=== PATIENT | male | born 1960 | race African-American/Black ===

== ENCOUNTER 2021-05-26 15:52 | Inpatient (IN) | payer MEDICAID ==
[~2021-05-26] VITALS: Ht 180.3 cm; Wt 99.3 kg
[2021-05-26] MEDS ORDERED: IPRATROPIUM BROMIDE (0.02%) 0.5MG/2.5ML NEB HHN STA (16:07)
[2021-05-26] MEDS ORDERED: METHYLPREDNISOLONE SOD SUCC 125 MG/2 ML VIAL IV STA (16:07)
[2021-05-26] MEDS ORDERED: MAGNESIUM 2 G PREMIX 50 ML IV ONE (16:15)
[2021-05-26] MEDS: ALBUTEROL (0.083%) 2.5MG/3ML NEB HHN SCH ×2 (16:30→17:00)
[2021-05-26] MEDS ORDERED: LEVOFLOXACIN 750MG PREMIX 150 ML IV ONE (16:30)
[2021-05-26 16:47] LABS: BASOPHILS % 0.1 % (0.0-2.0); HEMATOCRIT. 36.2 % (42.0-52.0); HEMOGLOBIN. 12.4 g/dL (14.0-18.0); LYMPHOCYTES % 11.9 % (20.0-50.0); MEAN CORPUSCULAR HEMOGLOBIN 28.7 pg (28.0-32.0); MEAN CORPUSCULAR VOLUME 83.4 fL (80.0-94.0); MEAN PLATELET VOLUME 8.8 fl (7.4-10.4); MONOCYTES % 7.8 % (2.0-8.0); NEUTROPHILS % 80.2 % (40.0-76.0); PLATELET 193 x1000/uL (130-400); RED BLOOD CELL COUNT 4.34 mill/uL (4.7-6.1); RED CELL DISTRIBUTION WIDTH 12.2 % (11.6-14.6)
[2021-05-26 16:53] LABS: CHLORIDE 107 mEq/L (98-107)
[2021-05-26] MEDS ORDERED: ALBUTEROL 6.7GM HFA INHALER ORI ONE (17:00)
[2021-05-26 22:00] VITALS: BP 153/97
[2021-05-27] VITALS (7 sets, daily range): BP systolic 137–173; BP diastolic 61–106
[2021-05-27] MEDS ORDERED: HYDROCODONE/ACETAMINOPHEN 5/325MG TABLET PO PRN
[2021-05-27] MEDS ORDERED: DOCUSATE SODIUM 100MG CAPSULE PO PRN
[2021-05-27] MEDS ORDERED: MAGNESIUM/ALUMINUM HYDROXIDE/SIMETHICONE 30ML UDC PO PRN
[2021-05-27] MEDS ORDERED: ONDANSETRON HCL 4MG/2ML INJ IV PRN
[2021-05-27] MEDS ORDERED: DEXTROSE 50% WATER 50ML SYRINGE IV PRN (00:45)
[2021-05-27] MEDS: CEFTRIAXONE 1,000 MG in DEXTROSE 5% WATER 50 ML IV SCH (01:12)
[2021-05-27] MEDS: BLOOD SUGAR DIAGNOSTIC STRIP TEST SCH ×5 (01:13→21:32)
[2021-05-27] MEDS: CLONIDINE 0.1MG TABLET PO PRN (01:13)
[2021-05-27] MEDS: INSULIN LISPRO 100 UNITS/ML SUBCUT SCH ×5 (01:13→21:32)
[2021-05-27] MEDS: AZITHROMYCIN 500 MG in DEXT 5% WATER 250 ML IV SCH (01:14)
[2021-05-27] MEDS ORDERED: METF-874 PO (03:23)
[2021-05-27] MEDS: AMLODIPINE 10MG TABLET PO SCH (08:56)
[2021-05-27] MEDS: DEXAMETHASONE 4MG/ML 1ML VIAL IV SCH (08:56)
[2021-05-27] MEDS: ACETAMINOPHEN 325MG TABLET PO PRN ×2 (08:57→21:34)
[2021-05-27 16:52] LABS: CHLORIDE 101 mEq/L (98-107)
[2021-05-27] MEDS ORDERED: INSULIN GLARGINE UD 100 UNITS/ML SYR SUBCUT SCH (22:00)
[2021-05-28] VITALS: BP 145/84
[2021-05-28] MEDS: ALBUTEROL 6.7GM HFA INHALER ORI SCH ×4 (01:05→17:25)
[2021-05-28] MEDS: AZITHROMYCIN 500 MG in DEXT 5% WATER 250 ML IV SCH (01:06)
[2021-05-28] MEDS: CEFTRIAXONE 1,000 MG in DEXTROSE 5% WATER 50 ML IV SCH (01:06)
[2021-05-28 04:00] VITALS: BP 126/87
[2021-05-28 07:06] LABS: CHLORIDE 102 mEq/L (98-107)
[2021-05-28 07:59] LABS: BASOPHILS % 0.3 % (0.0-2.0); HEMATOCRIT. 37.7 % (42.0-52.0); HEMOGLOBIN. 12.3 g/dL (14.0-18.0); LYMPHOCYTES % 9.8 % (20.0-50.0); MEAN CORPUSCULAR HEMOGLOBIN 27.4 pg (28.0-32.0); MEAN CORPUSCULAR VOLUME 83.9 fL (80.0-94.0); MEAN PLATELET VOLUME 8.9 fl (7.4-10.4); MONOCYTES % 11.2 % (2.0-8.0); NEUTROPHILS % 78.7 % (40.0-76.0); PLATELET 267 x1000/uL (130-400); RED BLOOD CELL COUNT 4.49 mill/uL (4.7-6.1); RED CELL DISTRIBUTION WIDTH 12.6 % (11.6-14.6)
[2021-05-28 08:00] VITALS: BP 138/85
[2021-05-28] MEDS: BLOOD SUGAR DIAGNOSTIC STRIP TEST SCH ×4 (08:02→21:26)
[2021-05-28] MEDS: INSULIN LISPRO 100 UNITS/ML SUBCUT SCH ×4 (08:03→21:26)
[2021-05-28] MEDS: AMLODIPINE 10MG TABLET PO SCH (08:39)
[2021-05-28] MEDS: DEXAMETHASONE 4MG/ML 1ML VIAL IV SCH (08:43)
[2021-05-28] MEDS: ENOXAPARIN 30MG/0.3ML SYR SUBCUT SCH ×2 (10:16→21:26)
[2021-05-28] MEDS: INSULIN GLARGINE UD 100 UNITS/ML SYR SUBCUT SCH ×2 (10:43→21:26)
[2021-05-28 11:24] LABS: CLARITY URINE CLEAR (CLEAR); COLOR URINE YELLOW (YELLOW); KETONES URINE NEGATIVE (NEGATIVE); LEUKOCYTE ESTERASE URINE NEGATIVE (NEGATIVE); NITRITE URINE NEGATIVE (NEGATIVE); OCCULT BLOOD URINE 1+ (NEGATIVE); PH URINE 5.5 (4.5-8.0); PROTEIN URINE 2+ (NEGATIVE); SPECIFIC GRAVITY URINE 1.019 (1.005-1.030)
[2021-05-28 11:46] LABS: *AMPHETAMINES SCREEN URINE NEGATIVE (NEGATIVE); *BARBITURATES SCREEN URINE NEGATIVE (NEGATIVE); *BENZODIAZEPINES SCREEN URINE NEGATIVE (NEGATIVE)
[2021-05-28 11:47] LABS: *COCAINE SCREEN URINE NEGATIVE (NEGATIVE); CANNABINOID URINE SCREEN NEGATIVE (NEGATIVE); METHADONE URINE SCREEN NEGATIVE (NEGATIVE); OPIATES URINE SCREEN NEGATIVE (NEGATIVE); PHENCYCLIDINE URINE SCREEN NEGATIVE (NEGATIVE)
[2021-05-28 12:00] VITALS: BP 152/101
[2021-05-28 16:00] VITALS: BP 134/73
[2021-05-28 20:00] VITALS: BP 126/75
[2021-05-28] MEDS ORDERED: NALOXONE HCL 0.4MG/ML VIAL IV PRN (23:00)
[2021-05-29] MEDS: CEFTRIAXONE 1,000 MG in DEXTROSE 5% WATER 50 ML IV SCH (00:32)
[2021-05-29] MEDS: ALBUTEROL 6.7GM HFA INHALER ORI SCH ×5 (00:32→17:13)
[2021-05-29 00:37] VITALS: BP 148/104
[2021-05-29] MEDS: AZITHROMYCIN 500 MG in DEXT 5% WATER 250 ML IV SCH (01:14)
[2021-05-29 04:00] VITALS: BP 163/94
[2021-05-29] MEDS: BLOOD SUGAR DIAGNOSTIC STRIP TEST SCH ×4 (07:40→21:43)
[2021-05-29 08:00] VITALS: BP 129/86
[2021-05-29] MEDS: AMLODIPINE 10MG TABLET PO SCH (08:11)
[2021-05-29] MEDS: DEXAMETHASONE 4MG/ML 1ML VIAL IV SCH (08:11)
[2021-05-29] MEDS: ENOXAPARIN 30MG/0.3ML SYR SUBCUT SCH ×2 (08:11→21:43)
[2021-05-29] MEDS: INSULIN LISPRO 100 UNITS/ML SUBCUT SCH ×4 (08:12→21:43)
[2021-05-29] MEDS: INSULIN GLARGINE UD 100 UNITS/ML SYR SUBCUT SCH ×2 (09:55→21:44)
[2021-05-29 12:00] VITALS: BP 154/102
[2021-05-29] MEDS: ERGOCALCIFEROL 50000UNITS CAPSULE PO SCH (15:37)
[2021-05-29 16:00] VITALS: BP 147/95
[2021-05-29 20:00] VITALS: BP 143/87
[2021-05-29] MEDS: ASCORBIC ACID 500 MG TABLET PO SCH (21:43)
[2021-05-30] VITALS: BP 138/89
[2021-05-30] MEDS: ALBUTEROL 6.7GM HFA INHALER ORI SCH ×3 (00:16→17:41)
[2021-05-30] MEDS: CEFTRIAXONE 1,000 MG in DEXTROSE 5% WATER 50 ML IV SCH (00:19)
[2021-05-30] MEDS: AZITHROMYCIN 500 MG in DEXT 5% WATER 250 ML IV SCH (00:55)
[2021-05-30 04:00] VITALS: BP 149/96
[2021-05-30 07:56] VITALS: BP 107/91
[2021-05-30] MEDS: BLOOD SUGAR DIAGNOSTIC STRIP TEST SCH ×4 (07:59→21:17)
[2021-05-30] MEDS: ASCORBIC ACID 500 MG TABLET PO SCH ×2 (08:16→21:17)
[2021-05-30] MEDS: ENOXAPARIN 30MG/0.3ML SYR SUBCUT SCH ×2 (08:17→21:17)
[2021-05-30] MEDS: DEXAMETHASONE 4MG/ML 1ML VIAL IV SCH (08:17)
[2021-05-30] MEDS: AMLODIPINE 10MG TABLET PO SCH (08:19)
[2021-05-30] MEDS: INSULIN LISPRO 100 UNITS/ML SUBCUT SCH ×4 (08:19→21:18)
[2021-05-30] MEDS: INSULIN GLARGINE UD 100 UNITS/ML SYR SUBCUT SCH ×2 (09:50→21:18)
[2021-05-30 12:08] VITALS: BP 147/98
[2021-05-30 16:15] VITALS: BP 155/95
[2021-05-30 20:00] VITALS: BP 149/93
[2021-05-31] VITALS: BP 133/87
[2021-05-31] MEDS: ALBUTEROL 6.7GM HFA INHALER ORI SCH ×6 (00:14→23:12)
[2021-05-31] MEDS: CEFTRIAXONE 1,000 MG in DEXTROSE 5% WATER 50 ML IV SCH (00:22)
[2021-05-31] MEDS: AZITHROMYCIN 500 MG in DEXT 5% WATER 250 ML IV SCH (01:09)
[2021-05-31] MEDS: ACETAMINOPHEN 325MG TABLET PO PRN ×3 (03:28→08:25)
[2021-05-31 04:00] VITALS: BP 124/77
[2021-05-31] MEDS: BLOOD SUGAR DIAGNOSTIC STRIP TEST SCH ×4 (06:51→21:00)
[2021-05-31 08:00] VITALS: BP 154/103
[2021-05-31] MEDS: AMLODIPINE 10MG TABLET PO SCH (08:22)
[2021-05-31] MEDS: ASCORBIC ACID 500 MG TABLET PO SCH ×2 (08:24→20:36)
[2021-05-31] MEDS: ENOXAPARIN 30MG/0.3ML SYR SUBCUT SCH ×2 (08:24→20:36)
[2021-05-31] MEDS: DEXAMETHASONE 4MG/ML 1ML VIAL IV SCH (08:24)
[2021-05-31] MEDS: CLONIDINE 0.1MG TABLET PO PRN (08:27)
[2021-05-31] MEDS: INSULIN LISPRO 100 UNITS/ML SUBCUT SCH ×4 (08:28→20:43)
[2021-05-31] MEDS: INSULIN GLARGINE UD 100 UNITS/ML SYR SUBCUT SCH ×2 (10:21→22:09)
[2021-05-31 12:00] VITALS: BP 141/75
[2021-05-31 16:00] VITALS: BP 142/95
[2021-05-31 20:00] VITALS: BP 126/68
[2021-06-01 00:05] VITALS: BP 133/71
[2021-06-01 04:00] VITALS: BP 125/66
[2021-06-01] MEDS: BLOOD SUGAR DIAGNOSTIC STRIP TEST SCH ×4 (07:40→20:59)
[2021-06-01 08:00] VITALS: BP 158/87
[2021-06-01] MEDS: INSULIN LISPRO 100 UNITS/ML SUBCUT SCH ×4 (08:10→20:57)
[2021-06-01] MEDS: DEXAMETHASONE 4MG/ML 1ML VIAL IV SCH (08:26)
[2021-06-01] MEDS: ASCORBIC ACID 500 MG TABLET PO SCH ×2 (08:27→20:57)
[2021-06-01] MEDS: ENOXAPARIN 30MG/0.3ML SYR SUBCUT SCH ×2 (08:27→20:57)
[2021-06-01] MEDS: AMLODIPINE 10MG TABLET PO SCH (08:27)
[2021-06-01] MEDS: INSULIN GLARGINE UD 100 UNITS/ML SYR SUBCUT SCH ×2 (09:42→20:59)
[2021-06-01] MEDS: ALBUTEROL 6.7GM HFA INHALER ORI SCH ×3 (10:25→16:52)
[2021-06-01 11:52] LABS: BG BASE EXCESS 1.5 mmol/L (-2.0-2.0); BG CARBOXYHEMOGLOBIN 0.6 % (0.5-1.5); BG DEOXYHEMOGLOBIN 5.1 % (0.0-5.0); BG FRACTION INSPIRED OXYGEN 100; BG HCO3 ACT 24.6 mmol/L (22.0-26.0); BG METHEMOGLOBIN 0.2 % (0.0-1.5); BG OXYGEN SATURATION 94.9 % (92.0-98.5); BG OXYHEMOGLOBIN 94.1 % (94.0-97.0); BG PCO2 34.3 mmHg (35.0-45.0); BG PH 7.474 (7.350-7.450); BG PO2 72.1 mmHg (75.0-100.0); BG SAMPLE SITE RIGHT RADIAL; BG TOTAL RESPIRATORY RATE 26 b/min; BG VENT MODE MASK - BIPAP
[2021-06-01 12:00] VITALS: BP 122/87
[2021-06-01 16:00] VITALS: BP 140/89
[2021-06-01 20:00] VITALS: BP 144/93
[2021-06-02] VITALS: BP 136/90
[2021-06-02 04:00] VITALS: BP 133/86
[2021-06-02] MEDS: ALBUTEROL 6.7GM HFA INHALER ORI SCH ×4 (06:05→23:48)
[2021-06-02] MEDS: BLOOD SUGAR DIAGNOSTIC STRIP TEST SCH ×4 (07:40→21:02)
[2021-06-02 08:00] VITALS: BP 169/96
[2021-06-02] MEDS: INSULIN LISPRO 100 UNITS/ML SUBCUT SCH ×4 (08:10→21:01)
[2021-06-02] MEDS: DEXAMETHASONE 4MG/ML 1ML VIAL IV SCH (09:31)
[2021-06-02] MEDS: AMLODIPINE 10MG TABLET PO SCH (09:31)
[2021-06-02] MEDS: ASCORBIC ACID 500 MG TABLET PO SCH ×2 (09:31→21:00)
[2021-06-02] MEDS: ENOXAPARIN 30MG/0.3ML SYR SUBCUT SCH ×2 (09:32→21:01)
[2021-06-02] MEDS: INSULIN GLARGINE UD 100 UNITS/ML SYR SUBCUT SCH ×2 (09:33→21:01)
[2021-06-02 12:00] VITALS: BP 177/99
[2021-06-02] MEDS: CLONIDINE 0.1MG TABLET PO PRN (12:47)
[2021-06-02 16:00] VITALS: BP 131/81
[2021-06-02 20:00] VITALS: BP 148/94
[2021-06-02] MEDS: GUAIFENESIN 200MG/10ML SUGAR FREE UDC PO PRN (23:55)
[2021-06-03] VITALS: BP 152/91
[2021-06-03 04:00] VITALS: BP 135/87
[2021-06-03] MEDS: GUAIFENESIN 200MG/10ML SUGAR FREE UDC PO PRN ×3 (05:03→17:15)
[2021-06-03] MEDS: ALBUTEROL 6.7GM HFA INHALER ORI SCH ×4 (05:03→23:38)
[2021-06-03] MEDS: BLOOD SUGAR DIAGNOSTIC STRIP TEST SCH ×4 (07:40→20:56)
[2021-06-03] MEDS: ENOXAPARIN 30MG/0.3ML SYR SUBCUT SCH ×2 (08:38→20:56)
[2021-06-03] MEDS: AMLODIPINE 10MG TABLET PO SCH (08:39)
[2021-06-03] MEDS: DEXAMETHASONE 4MG/ML 1ML VIAL IV SCH (08:39)
[2021-06-03] MEDS: ASCORBIC ACID 500 MG TABLET PO SCH ×2 (08:39→20:56)
[2021-06-03] MEDS: INSULIN LISPRO 100 UNITS/ML SUBCUT SCH ×4 (08:41→21:00)
[2021-06-03] MEDS: INSULIN GLARGINE UD 100 UNITS/ML SYR SUBCUT SCH ×2 (09:40→21:04)
[2021-06-03 12:00] VITALS: BP 130/85
[2021-06-03 16:00] VITALS: BP 144/95
[2021-06-03 20:00] VITALS: BP 158/89
[2021-06-04 00:01] VITALS: BP 131/83
[2021-06-04 04:00] VITALS: BP 143/87
[2021-06-04] MEDS: ALBUTEROL 6.7GM HFA INHALER ORI SCH ×4 (05:33→23:50)
[2021-06-04] MEDS: INSULIN LISPRO 100 UNITS/ML SUBCUT SCH ×4 (05:35→20:37)
[2021-06-04] MEDS: BLOOD SUGAR DIAGNOSTIC STRIP TEST SCH ×4 (05:35→20:34)
[2021-06-04] MEDS: GUAIFENESIN 200MG/10ML SUGAR FREE UDC PO PRN (07:57)
[2021-06-04 08:00] VITALS: BP 116/89
[2021-06-04] MEDS: ASCORBIC ACID 500 MG TABLET PO SCH ×2 (08:00→20:34)
[2021-06-04] MEDS: DEXAMETHASONE 4MG/ML 1ML VIAL IV SCH (08:00)
[2021-06-04] MEDS: ENOXAPARIN 30MG/0.3ML SYR SUBCUT SCH ×2 (08:00→20:34)
[2021-06-04] MEDS: AMLODIPINE 10MG TABLET PO SCH (08:00)
[2021-06-04] MEDS: INSULIN GLARGINE UD 100 UNITS/ML SYR SUBCUT SCH ×2 (09:44→20:38)
[2021-06-04 12:00] VITALS: BP 126/83
[2021-06-04 16:00] VITALS: BP 147/85
[2021-06-04 20:00] VITALS: BP 128/75
[2021-06-04] MEDS: ACETAMINOPHEN 325MG TABLET PO PRN (23:51)
[2021-06-05] VITALS: BP 146/90
[2021-06-05 04:00] VITALS: BP 122/96
[2021-06-05] MEDS: ALBUTEROL 6.7GM HFA INHALER ORI SCH ×4 (05:31→21:30)
[2021-06-05] MEDS: BLOOD SUGAR DIAGNOSTIC STRIP TEST SCH ×4 (06:37→20:55)
[2021-06-05 06:40] LABS: HEMATOCRIT. 41.3 % (42.0-52.0); MEAN CORPUSCULAR HEMOGLOBIN 27.8 pg (28.0-32.0); MEAN CORPUSCULAR VOLUME 88.1 fL (80.0-94.0); MEAN PLATELET VOLUME 9.9 fl (7.4-10.4); PLATELET 228 x1000/uL (130-400); RED BLOOD CELL COUNT 4.69 mill/uL (4.7-6.1); RED CELL DISTRIBUTION WIDTH 12.7 % (11.6-14.6)
[2021-06-05 06:41] LABS: CHLORIDE 103 mEq/L (98-107)
[2021-06-05] MEDS: INSULIN LISPRO 100 UNITS/ML SUBCUT SCH ×4 (07:18→20:56)
[2021-06-05 08:00] VITALS: BP 127/83
[2021-06-05] MEDS: AMLODIPINE 10MG TABLET PO SCH (08:49)
[2021-06-05] MEDS: DEXAMETHASONE 4MG/ML 1ML VIAL IV SCH (08:49)
[2021-06-05] MEDS: ASCORBIC ACID 500 MG TABLET PO SCH ×2 (08:49→20:55)
[2021-06-05] MEDS: ENOXAPARIN 30MG/0.3ML SYR SUBCUT SCH ×2 (08:49→20:55)
[2021-06-05] MEDS: ERGOCALCIFEROL 50000UNITS CAPSULE PO SCH (08:49)
[2021-06-05] MEDS: INSULIN GLARGINE UD 100 UNITS/ML SYR SUBCUT SCH ×2 (09:35→20:56)
[2021-06-05] MEDS: ACETAMINOPHEN 325MG TABLET PO PRN (11:17)
[2021-06-05 11:51] VITALS: BP 131/97
[2021-06-05 13:37] LABS: PLATELET ESTIMATE NORMAL
[2021-06-05 16:00] VITALS: BP 149/84
[2021-06-05 20:00] VITALS: BP 145/86
[2021-06-05 20:47] LABS: CREATINE KINASE 111 IU/L (39-308)
[2021-06-05 20:48] LABS: CREATINE KINASE MB FRACTION < 1.0 ng/mL (0.5-3.6)
[2021-06-05] MEDS: GUAIFENESIN 200MG/10ML SUGAR FREE UDC PO PRN (21:03)
[2021-06-06] VITALS (8 sets, daily range): BP systolic 114–135; BP diastolic 46–93
[2021-06-06 01:30] LABS: CREATINE KINASE 129 IU/L (39-308); CREATINE KINASE MB FRACTION < 1.0 ng/mL (0.5-3.6)
[2021-06-06] MEDS: ALBUTEROL 6.7GM HFA INHALER ORI SCH ×2 (06:03→11:19)
[2021-06-06] MEDS: BLOOD SUGAR DIAGNOSTIC STRIP TEST SCH ×4 (06:03→21:00)
[2021-06-06 07:31] LABS: CREATINE KINASE 125 IU/L (39-308)
[2021-06-06 07:32] LABS: CREATINE KINASE MB FRACTION < 1.0 ng/mL (0.5-3.6)
[2021-06-06] MEDS: INSULIN LISPRO 100 UNITS/ML SUBCUT SCH ×4 (07:53→22:24)
[2021-06-06] MEDS: AMLODIPINE 10MG TABLET PO SCH (08:03)
[2021-06-06] MEDS: ASCORBIC ACID 500 MG TABLET PO SCH ×2 (08:03→22:06)
[2021-06-06] MEDS: DEXAMETHASONE 4MG/ML 1ML VIAL IV SCH (08:03)
[2021-06-06] MEDS: ENOXAPARIN 30MG/0.3ML SYR SUBCUT SCH ×2 (08:03→22:07)
[2021-06-06] MEDS: INSULIN GLARGINE UD 100 UNITS/ML SYR SUBCUT SCH ×2 (09:53→22:22)
[2021-06-06] MEDS ORDERED: IPRATROPIUM/ALBUTEROL 0.5-3(2.5)MG/3ML NEB HHN PRN (12:45)
[2021-06-06] MEDS: METHYLPREDNISOLONE SOD SUCC 40 MG/ML VIAL IV SCH ×2 (15:03→22:06)
[2021-06-06] MEDS: IPRATROPIUM/ALBUTEROL 0.5-3(2.5)MG/3ML NEB HHN SCH (20:46)
[2021-06-07] VITALS (11 sets, daily range): BP systolic 110–153; BP diastolic 53–103
[2021-06-07] MEDS: ALBUTEROL 6.7GM HFA INHALER ORI SCH ×4 (00:31→17:42)
[2021-06-07] MEDS: METHYLPREDNISOLONE SOD SUCC 40 MG/ML VIAL IV SCH ×3 (05:45→21:13)
[2021-06-07] MEDS: BLOOD SUGAR DIAGNOSTIC STRIP TEST SCH ×4 (08:15→21:15)
[2021-06-07] MEDS: IPRATROPIUM/ALBUTEROL 0.5-3(2.5)MG/3ML NEB HHN SCH ×4 (08:38→20:42)
[2021-06-07] MEDS: INSULIN LISPRO 100 UNITS/ML SUBCUT SCH ×4 (08:48→21:14)
[2021-06-07] MEDS: ASCORBIC ACID 500 MG TABLET PO SCH ×2 (08:48→21:13)
[2021-06-07] MEDS: AMLODIPINE 10MG TABLET PO SCH (08:48)
[2021-06-07] MEDS: ENOXAPARIN 30MG/0.3ML SYR SUBCUT SCH ×2 (08:48→21:13)
[2021-06-07] MEDS: INSULIN GLARGINE UD 100 UNITS/ML SYR SUBCUT SCH ×2 (10:51→22:24)
[2021-06-07 11:00] LABS: BG BASE EXCESS -3.8 mmol/L (-2.0-2.0); BG CARBOXYHEMOGLOBIN 1.1 % (0.5-1.5); BG DEOXYHEMOGLOBIN 18.5 % (0.0-5.0); BG FRACTION INSPIRED OXYGEN 100; BG HCO3 ACT 19.1 mmol/L (22.0-26.0); BG METHEMOGLOBIN 0.2 % (0.0-1.5); BG OXYGEN SATURATION 81.3 % (92.0-98.5); BG OXYHEMOGLOBIN 80.2 % (94.0-97.0); BG PCO2 28.5 mmHg (35.0-45.0); BG PH 7.443 (7.350-7.450); BG PO2 45.2 mmHg (75.0-100.0); BG SAMPLE SITE RIGHT RADIAL; BG TOTAL HEMOGLOBIN 12.4 g/dL (12.0-18.0); BG VENT MODE HIGH FLOW
[2021-06-08] VITALS (19 sets, daily range): BP systolic 106–156; BP diastolic 55–100
[2021-06-08] MEDS: IPRATROPIUM/ALBUTEROL 0.5-3(2.5)MG/3ML NEB HHN SCH ×5 (02:16→21:04)
[2021-06-08] MEDS: METHYLPREDNISOLONE SOD SUCC 40 MG/ML VIAL IV SCH ×3 (05:13→21:37)
[2021-06-08] MEDS: BLOOD SUGAR DIAGNOSTIC STRIP TEST SCH ×4 (07:30→21:38)
[2021-06-08] MEDS: INSULIN LISPRO 100 UNITS/ML SUBCUT SCH ×4 (08:00→21:37)
[2021-06-08] MEDS: GUAIFENESIN 200MG/10ML SUGAR FREE UDC PO PRN (09:18)
[2021-06-08] MEDS: ENOXAPARIN 30MG/0.3ML SYR SUBCUT SCH ×2 (09:19→21:37)
[2021-06-08] MEDS: ACETAMINOPHEN 325MG TABLET PO PRN (09:19)
[2021-06-08] MEDS: ASCORBIC ACID 500 MG TABLET PO SCH ×2 (09:19→21:37)
[2021-06-08] MEDS: ERGOCALCIFEROL 50000UNITS CAPSULE PO SCH (09:19)
[2021-06-08] MEDS: AMLODIPINE 10MG TABLET PO SCH (09:20)
[2021-06-08] MEDS: INSULIN GLARGINE UD 100 UNITS/ML SYR SUBCUT SCH ×2 (10:00→21:38)
[2021-06-08 12:36] LABS: BG BASE EXCESS -3.1 mmol/L (-2.0-2.0); BG CARBOXYHEMOGLOBIN 0.9 % (0.5-1.5); BG DEOXYHEMOGLOBIN 7.7 % (0.0-5.0); BG FRACTION INSPIRED OXYGEN 100; BG HCO3 ACT 19.5 mmol/L (22.0-26.0); BG METHEMOGLOBIN 0.3 % (0.0-1.5); BG OXYGEN SATURATION 92.2 % (92.0-98.5); BG OXYHEMOGLOBIN 91.1 % (94.0-97.0); BG PCO2 28.3 mmHg (35.0-45.0); BG PH 7.456 (7.350-7.450); BG SAMPLE SITE RIGHT RADIAL; BG VENT MODE HIGH FLOW
[2021-06-09] MEDS: IPRATROPIUM/ALBUTEROL 0.5-3(2.5)MG/3ML NEB HHN SCH ×2 (01:02→08:02)
[2021-06-09] MEDS: METHYLPREDNISOLONE SOD SUCC 40 MG/ML VIAL IV SCH (04:09)
[2021-06-09 05:47] VITALS: BP 126/93
[2021-06-09] MEDS: BLOOD SUGAR DIAGNOSTIC STRIP TEST SCH (07:30)
[2021-06-09] MEDS: INSULIN LISPRO 100 UNITS/ML SUBCUT SCH (08:00)
[2021-06-09] MEDS ORDERED: ATROPINE SULFATE 1MG/10ML SYR ONE (08:34)
[2021-06-09] MEDS ORDERED: VECURONIUM BROMIDE 10 MG/VIAL IV ONE (08:34)
[2021-06-09] MEDS ORDERED: ETOMIDATE 2MG/ML 10ML VIAL IV ONE (08:34)
[2021-06-09] MEDS ORDERED: DEXTROSE 50% WATER 50ML SYRINGE IV ONE (09:01)
[2021-06-09] MEDS ORDERED: CALCIUM CHLORIDE 1GM/10ML SYR IV ONE (09:01)
[2021-06-09] MEDS ORDERED: EPINEPHRINE 0.1MG/ML (1:10,000) 10ML SYR ONE (09:01)
[2021-06-09] MEDS ORDERED: SODIUM BICARBONATE 8.4% 1 MEQ/ML 50ML SYR IV ONE (09:01)
[2021-06-09] MEDS ORDERED: INSULIN GLARGINE UD 100 UNITS/ML SYR SUBCUT SCH (12:00)
== END 2021-06-09 11:49 | DRG 720 ==
LOC: ER 15:52 → 7WST 17:12 → ENRESERV 20:23 → 5EST 06-06 15:45
PROVIDERS: ADMIT Hospitalist; ATTEND Hospitalist
PROC: 5A09357 Assistance with Respiratory Ventilation, Less than 24 Consecutive Hours, Continuous Positive Airway Pressure (ICD-10-PCS; principal; 2021-05-31)
PROC: 5A1935Z Respiratory Ventilation, Less than 24 Consecutive Hours (ICD-10-PCS; 2021-06-09)
PROC: 0BH17EZ Insertion of Endotracheal Airway into Trachea, Via Natural or Artificial Opening (ICD-10-PCS; 2021-06-09)
PROC: 5A2204Z Restoration of Cardiac Rhythm, Single (ICD-10-PCS; 2021-06-09)
PROC: 5A12012 Performance of Cardiac Output, Single, Manual (ICD-10-PCS; 2021-06-09)
DX: A41.89 Other specified sepsis (principal); I46.9 Cardiac arrest, cause unspecified; J12.82 Pneumonia due to coronavirus disease 2019; J96.01 Acute respiratory failure with hypoxia; U07.1 COVID-19; E43 Unspecified severe protein-calorie malnutrition; E11.65 Type 2 diabetes mellitus with hyperglycemia; R65.20 Severe sepsis without septic shock; D64.9 Anemia, unspecified; E66.9 Obesity, unspecified; R74.01 Elevation of levels of liver transaminase levels; Z79.01 Long term (current) use of anticoagulants; Z68.30 Body mass index [BMI] 30.0-30.9, adult
CPT/HCPCS: 31500; 36415; 36600; 71045; 80048; 80053; 80305; 81003; 82375; 82550; 82553; 82728; 82805; 82962; 83036; 83605; 83615; 83735; 83880; 84100; 84484; 85025; 85379; 86140; 87426; 92950; 93005; 94640; 94660; 99285; J0456; J0461; J0696; J1100; J1650; J1815; J1956; J2920; J3490; J7040; J7060; U0003; U0005